=== PATIENT | female | born 1935 | race Asian ===

== ENCOUNTER → 2018-01-06 16:50 | Outpatient (CLI) | payer MEDICARE, MEDICAID, SELFPAY ==
--- NOTE | 2018-01-06 16:54 | DI.RAD.S_ITS ---
PROCEDURE: XR CHEST 2V INDICATIONS: dyspnea TECHNIQUE: 2 views of the chest were acquired. COMPARISON: [facility], CHEST 2 VIEW, 11/05/2017, 11:58. [facility], CHEST 2 VIEW, 12/12/2014, 14:06. FINDINGS: Surgical changes and devices: None. Lungs and pleura: No pleural effusions or pneumothorax. Lungs are clear. Hyperinflation. Mediastinum: Stable prominence of the cardiomediastinal contours. Bones and chest wall: No suspicious bony abnormalities. Soft tissues appear unremarkable. Old right clavicle fracture. Old rib fractures. Stable vertebral body compression fracture. IMPRESSION: Normal chest. Chronic findings as described above. Dictated by: Maximiliano Haley M.D. on 01/06/2018 at 19:05 Approved by: Maximiliano Haley M.D. on 01/06/2018 at 19:07
[2018-01-06 17:33] LABS: Hematocrit 38.4 % (36-46); Hemoglobin 12.4 g/dL (12.0-16.0); Mean Corpuscular HGB Conc 32.2 % (30-36); Mean Corpuscular Hemoglobin 22.4 PG (26-34); Mean Corpuscular Volume 69.7 fL (80-100); Platelet Count 351 X10^3/uL (150-400); Red Blood Cell Count 5.52 X10^6/uL (4.0-5.2); Red Cell Distribution Width 15.3 % (11.6-14.8); White Blood Cell Count 8.5 X10^3/uL (4.5-11.0)
[2018-01-06 17:48] LABS: B Type Natriuretic Peptide 53.9 (<100)
[2018-01-06 17:57] LABS: Neutrophils Absolute Manual 5100 /uL (3000-5900); Total Cells Counted 100
[2018-01-06 17:58] LABS: Hypochromasia 1+; Microcytosis 1+; Ovalocytes 1+; Poikilocytosis 1+
[2018-01-06 19:07] LABS: Alanine Aminotransferase 30 IU/L (9-52); Albumin 4.6 g/dL (3.5-5.0); Albumin Globulin Ratio 1.2 (1.0-2.8); Alkaline Phosphatase 83 U/L (38-126); Aspartate Aminotransferase 27 IU/L (14-36); BUN Creatinine Ratio 26.7 (6-22); Bilirubin Total 0.4 mg/dL (0.2-1.3); Calcium 9.7 mg/dL (8.4-10.2); Estimated Glomerular Filt Rate > 60.0 mL/min (>60); Globulin 3.7 g/dL (1.7-4.1); Glucose 104 mg/dL (80-110); HEMOLYSIS 18 (0-50); Potassium 4.1 mmol/L (3.4-5.1); Sodium 145 mmol/L (137-145); Total Protein 8.3 g/dL (6.3-8.2)
[2018-01-06 19:24] LABS: Free T4, Direct Thyroxine 1.15 ng/dL (0.78-2.19)
[2018-01-06 19:38] LABS: Thyroid Stimulating Hormone 0.55 uIU/mL (0.47-4.68)
== END ==
PROVIDERS: Family Provider Internal Medicine; PCP Internal Medicine; Visit Provider Internal Medicine
DX: R06.00 Dyspnea, unspecified (principal); D56.9 Thalassemia, unspecified; I10 Essential (primary) hypertension; R60.9 Edema, unspecified
CPT/HCPCS: 71046; 80053; 83880; 84439; 84443; 85025

== ENCOUNTER 2018-01-15 08:55 | Emergency (ER) | payer MEDICARE, MEDICAID, SELFPAY ==
[2018-01-15] VITALS (8 sets, daily range): BP systolic 178–186; BP diastolic 74–86; PULSE 75–103; RESP 14–30; TEMP 36.7; O2SAT 96–97; BMI 23.0
[2018-01-15] MEDS: ALBUTEROL/IPRATROPIUM 3 ML AMPUL INH (10:38)
--- NOTE | 2018-01-15 10:47 | ED_ITS ---
HPI - Dizziness General Chief Complaint: Dizziness Stated Complaint: high BP Time Seen by Provider: 01/15/18 09:03 Source: patient Mode of arrival: ambulatory Limitations: no limitations History of Present Illness HPI Narrative: 82F hx asthma and vertigo has 3 days vertiginous symptoms typical of her vertigo worsened with head movement. Patient also here for complaints of incraesed blood prssure as measured at home. Stated 3 days prior patient was taken off her nifedipine due to side effects of pedal edema. Since then she has noticed and increase of BP. No other symptoms - no chset pain, fever, chills, SOB. Has an outpatient diagnostic imaging appointment in 4 days for cardiac echo. PCP Dr. Pino Related Data Home Medications Medication Instructions Recorded Confirmed omeprazole magnesium [Prilosec OTC] 20 mg PO QAM PRN #0 07/28/11 01/15/18 hydrochlorothiazide 12.5 mg PO QDAY 01/15/18 01/15/18 Previous Rx's Medication Instructions Recorded albuterol sulfate [Ventolin HFA] 0 puff INH SEE INSTRUCTIONS #1 inh 07/26/17 fluticasone-salmeterol [Advair 1 puff INH BID #180 inh 07/26/17 Diskus] lisinopril 40 mg PO QDAY #90 tab 07/26/17 nifedipine [Adalat CC] 90 mg PO QDAY #90 tab 07/26/17 clopidogrel 75 mg PO QDAY #90 tab 08/12/17 meclizine 25 mg PO TIDP PRN #90 tab 08/12/17 Home Nebulizer #1 ea 01/06/18 albuterol sulfate 2.5 mg/3 mL 2.5 mg CONTINUOUS NEBULIZATION 01/06/18 (0.083 %) solution for nebulization Q4HP PRN #120 each Allergies Allergy/AdvReac Type Severity Reaction Status Date / Time hydrocodone [HYDROCODONE] Allergy Unknown GI UPSET Verified 01/06/18 16:25 BUT IT WAS GIVEN ON EMPTY STOMACH doxycycline [DOXYCYCLINE] AdvReac Mild MILD GI Verified 01/06/18 16:25 DISTRESS, NOT SURE Review of Systems Review of Systems ROS: Constitutional - No fever, chills Eyes - No visual changes ENT - No hearing loss Cardiovascular - No chest pain, No edema, no palpitations Respiratory - No cough, mild shortness of breath, wheeze GI - No abdominal pain, No nausea, No vomiting - No dysuria, no hematuria MSK- No back pain Skin - No rash Neuro - No weakness, no change in level of consciousness, has vertigo Endocrine - No polyuria Hematologic/lymphatic - No easy bruising, no petechiae PFSH Medical History Asthma (Chronic) Hyperlipidemia (Chronic) Essential hypertension (Chronic) Thalassemia (Chronic) Dizziness (Chronic) Heart murmur (Chronic 01/02/16) Social History Smoking Status: Never smoker Exam Narrative Exam Narrative: Exam: Constitutional - Well appearing, well nourished, NAD EYES - PERRL, EOMI ENT - Moist oral mucosa Cardiovasuclar - Normal rate, slightly irregular rhythm, no murmurs, gallops, rubs Respiratory - Lungs moderate wheeze bilaterally, no increased respiratory effort , no accessory muscle use GI - Soft, non tender, non distended, no rebound MSK - No deformity, No CVA tenderness, No peripheral edema Skin - No rash, no petechiae Neuro - A&Ox3, moves all extremities. No focal deficits; extinguishing nystagmus on Left gaze Initial Vital Signs Initial Vital Signs: Vital Signs Temperature 98.1 F 01/15/18 09:13 Pulse Rate 75 01/15/18 09:13 Respiratory Rate 14 01/15/18 09:13 Blood Pressure 178/80 H 01/15/18 09:13 Pulse Oximetry 97 01/15/18 09:13 Course Orders Ordered: ED Orders 01/15/18 10:25 Complete Blood Count AUTO DIFF Stat Comprehensive Metabolic Panel Stat Magnesium Stat Troponin with CK Cardiac Panel Stat 01/15/18 10:26 EKG-12 Lead Stat 01/15/18 10:50 XR chest 2V Stat 01/15/18 11:15 Urinalysis and Microscopic Stat Urine Culture Stat Discontinued Medications Albuterol/Ipratropium (Duoneb) 3 ml INH NOW ONE Stop: 01/15/18 10:36 Last Admin: 01/15/18 10:38 Dose: 3 ml Vital Signs - 8 hr 01/15/18 09:13 01/15/18 09:20 01/15/18 09:23 Temperature 98.1 F 98.1 F 98.1 F Pulse Rate 75 75 75 Respiratory Rate 14 14 14 Blood Pressure 178/80 H 178/80 H 178/80 H Blood Pressure [Right Arm] Pulse Oximetry 97 97 97 01/15/18 10:38 01/15/18 11:46 01/15/18 12:30 Temperature Pulse Rate 103 H 85 79 Respiratory Rate 30 H 30 H 16 Blood Pressure Blood Pressure [Right Arm] 186/86 H 178/77 H Pulse Oximetry 96 97 96 01/15/18 13:33 Temperature Pulse Rate 77 Respiratory Rate 18 Blood Pressure Blood Pressure [Right Arm] 181/74 H Pulse Oximetry 96 MDM - Dizziness Lab Data Result diagrams: 01/15/18 10:25 01/15/18 10:25 Lab Results 01/15/18 01/15/18 01/15/18 Range/Units 10:25 10:25 11:15 WBC 7.8 (4.5-11.0) X10^3/uL RBC 5.84 H (4.0-5.2) X10^6/uL Hgb 13.1 (12.0-16.0) g/dL Hct 40.2 (36-46) % MCV 68.9 L (80-100) fL MCH 22.4 L (26-34) PG MCHC 32.5 (30-36) % RDW 15.1 H (11.6-14.8) % Plt Count 334 (150-400) X10^3/uL Neut % (Auto) Not Reportable Lymph % (Auto) Not Reportable [place] % (Auto) Not Reportable Eos % (Auto) Not Reportable Baso % (Auto) Not Reportable Total Counted Cancelled Seg Neutrophils % Cancelled Band Neutrophils % Cancelled Lymphocytes % (Manual) Cancelled Atypical Lymphs % Cancelled Monocytes % (Manual) Cancelled Eosinophils % (Manual) Cancelled Basophils % (Manual) Cancelled Metamyelocytes % Cancelled Myelocytes % Cancelled Promyelocytes % Cancelled Blast Cells % Cancelled Neutrophils # (Manual) Cancelled Differential Comment Cancelled Plasma Cells Cancelled RBC Morphology Not Reportable Hypochromasia 2+ H Poikilocytosis 2+ H Anisocytosis 2+ H Target Cells 2+ H Sodium 141 (137-145) mmol/L Potassium 4.0 (3.4-5.1) mmol/L Chloride 100.0 (98-107) mmol/L Carbon Dioxide 28.0 (22-32) mmol/L BUN 15.0 (7-17) mg/dL Creatinine 0.60 (0.52-1.04) mg/dL Estimated GFR > 60.0 (>60) mL/min BUN/Creatinine Ratio 25.0 H (6-22) Glucose 106 (80-110) mg/dL Calcium 9.4 (8.4-10.2) mg/dL Magnesium 2.3 (1.6-2.3) mg/dL Total Bilirubin 0.6 (0.2-1.3) mg/dL AST 60 H (14-36) IU/L ALT 27 (9-52) IU/L Alkaline Phosphatase 88 (38-126) U/L Total Creatine Kinase 92 (30-135) U/L Troponin I < 0.012 (0.01-0.034) ng/mL Total Protein 8.6 H (6.3-8.2) g/dL Albumin 4.5 (3.5-5.0) g/dL Globulin 4.1 (1.7-4.1) g/dL Albumin/Globulin Ratio 1.1 (1.0-2.8) Urine Color Yellow Urine Appearance Clear Urine pH 7.0 (4.5-8.0) Ur Specific [place] 1.010 (1.000-1.035) Urine Protein 1+ H (Negative) Urine Glucose (UA) Negative (Negative) g/dL Urine Ketones Negative (NEGATIVE) Urine Occult Blood Trace-lysed (Negative) Urine Nitrate Negative (Negative) Urine Bilirubin Negative (NEGATIVE) Urine Urobilinogen 0.2 (0.2) E.U./dL Ur Leukocyte Esterase Trace H (NEGATIVE) Urine RBC None seen (0-5/HPF) Urine WBC 5-10/hpf H (0-5/HPF) Urine Bacteria None seen (None) Ur Culture Indicated? Specimen cultured Micro UA Comment Not Reportable ECG Data Interpretation: Sinus Rhthym; HR [address]/Tw changes Normal DC interval; RBBB Frequent PACs MDM Narrative Medical decision making narrative: Patient with hypertension secondary to cessation of her BP medications. No end organ damage. Benign vertigo consistent with patient's prior symptoms. Meclizine ordered. Patient did not take her morning albuterol - duoneb given in ED. Patient remained in stable condition while in ED. As today was wednesday, the office of Dr. Pino telecommunications equipment installer service stated patient must make follow up appointment themselves. Strict instructions to follow up with Dr. Pino Discharge Plan Departure Patient Disposition: Home, Self-Care Clinical Impression: Vertigo Instructions: DI for Vertigo Activity Restrictions/Additional Instructions: You must follow up within [address] Pino. You will need additional blood pressure medication. Prescriptions: No Action omeprazole magnesium [Prilosec OTC] 20 MG tablet,delayed release (DR/EC) 20 mg PO QAM PRN (Reason: Abdominal Discomfort) Qty: 0 RF: 0 nifedipine [Adalat CC] 90 MG tablet extended release 90 mg PO QDAY Qty: 90 RF: 11 fluticasone-salmeterol [Advair Diskus] 500 MCG/50 MCG blister with device 1 puff INH BID Qty: 180 RF: 3 albuterol sulfate [Ventolin HFA] 90 MCG/PUFF HFA aerosol inhaler INH SEE INSTRUCTIONS Qty: 1 RF: 11 lisinopril 40 MG tablet 40 mg PO QDAY Qty: 90 RF: 3 clopidogrel 75 MG tablet 75 mg PO QDAY Qty: 90 RF: 3 meclizine 25 MG tablet 25 mg PO TIDP PRNQty: 90 RF: 6 Home Nebulizer Qty: 1 RF: 0 albuterol sulfate 2.5 mg /3 mL (0.083 %) solution for nebulization 2.5 mg Continuous Nebulization Q4HP PRN (Reason: wheezing) Qty: 120 RF: 11 hydrochlorothiazide 25 MG tablet 12.5 mg PO QDAY RF: 0 Referrals: Phil Pino MD [Primary Care Provider] -
--- NOTE | 2018-01-15 10:50 | DI.RAD.S_ITS ---
PROCEDURE: XR CHEST 2V INDICATIONS: Dizziness TECHNIQUE: 2 views of the chest were acquired. COMPARISON: [facility], CR, XR CHEST 2V, 01/06/2018, 16:53. FINDINGS: Surgical changes and devices: None. Lungs and pleura: No pleural effusions or pneumothorax. There is hyperinflation of the lungs with flattening of the hemidiaphragms compatible with COPD. no acute consolidation. Mediastinum: Mediastinal contours are unchanged. Heart size is normal. Bones and chest wall: No suspicious bony abnormalities. Soft tissues appear unremarkable. IMPRESSION: 1. Findings compatible with COPD redemonstrated. 2. No definite acute cardiopulmonary disease. Dictated by: Javad Bell M.D. on 01/15/2018 at 11:33 Approved by: Javad Bell M.D. on 01/15/2018 at 11:34
[2018-01-15 11:14] LABS: Hematocrit 40.2 % (36-46); Hemoglobin 13.1 g/dL (12.0-16.0); Mean Corpuscular HGB Conc 32.5 % (30-36); Mean Corpuscular Hemoglobin 22.4 PG (26-34); Mean Corpuscular Volume 68.9 fL (80-100); Platelet Count 334 X10^3/uL (150-400); Red Blood Cell Count 5.84 X10^6/uL (4.0-5.2); Red Cell Distribution Width 15.1 % (11.6-14.8); White Blood Cell Count 7.8 X10^3/uL (4.5-11.0)
[2018-01-15 11:21] LABS: Add Manual Diff / Slide Review NO; Alanine Aminotransferase 27 IU/L (9-52); Albumin 4.5 g/dL (3.5-5.0); Albumin Globulin Ratio 1.1 (1.0-2.8); Alkaline Phosphatase 88 U/L (38-126); Aspartate Aminotransferase 60 IU/L (14-36); Bilirubin Total 0.6 mg/dL (0.2-1.3); Calcium 9.4 mg/dL (8.4-10.2); Creatine Kinase 92 U/L (30-135); Estimated Glomerular Filt Rate > 60.0 mL/min (>60); Globulin 4.1 g/dL (1.7-4.1); Glucose 106 mg/dL (80-110); Magnesium 2.3 mg/dL (1.6-2.3); Sodium 141 mmol/L (137-145); Total Protein 8.6 g/dL (6.3-8.2)
[2018-01-15 11:27] LABS: HEMOLYSIS 56 (0-50)
[2018-01-15 11:31] LABS: Bacteria Urine None Seen; RBC Urine None Seen (0-5/HPF)
[2018-01-15 11:32] LABS: Appearance Urine UA CLEAR; Bilirubin Urine UA NEGATIVE (NEGATIVE); Color Urine UA YELLOW; Glucose Urine UA NEGATIVE (Negative); Ketones Urine UA NEGATIVE (NEGATIVE); Leukocyte Esterase Urine UA TRACE (NEGATIVE); Nitrite Urine UA Negative (Negative); Occult Blood Urine UA TRACE-LYSED (Negative); Protein Urine UA 1+ (Negative); Urobilinogen Urine UA 0.2 E.U./dL (0.2)
[2018-01-15 11:32] LABS: Troponin I < 0.012 ng/mL (0.01-0.034)
[2018-01-15 11:40] LABS: Culture Indicated Urine Specimen Cultured; WBC Urine 5-10/HPF (0-5/HPF)
[2018-01-15 12:52] LABS: Anisocytosis 2+; Hypochromasia 2+; Poikilocytosis 2+; Target Cells 2+
[2018-01-15 12:53] LABS: Smudge Cells 1+
== END 2018-01-15 13:51 | disposition home or self-care (01) ==
PROVIDERS: Emergency Provider Student in an Organized Health Care Education/Training Program; Family Provider Internal Medicine; PCP Internal Medicine
DX: R42 Dizziness and giddiness (principal)
CPT/HCPCS: 36591; 71046; 80053; 81001; 82550; 82553; 83735; 84484; 85025; 87086; 93005; 93010; 93041; 94640; 99283; 99285

== ENCOUNTER → 2018-02-04 11:07 | Outpatient (CLI) | payer MEDICARE, MEDICAID, SELFPAY ==
[2018-02-04 12:09] LABS: Blood Urea Nitrogen 18 mg/dL (7-17); Calcium 9.7 mg/dL (8.4-10.2); Carbon Dioxide 30 mmol/L (22-32); Chloride 96 mmol/L (98-107); Estimated Glomerular Filt Rate > 60.0 mL/min (>60); Glucose 107 mg/dL (80-110); HEMOLYSIS < 15 (0-50); Potassium 3.2 mmol/L (3.4-5.1); Sodium 140 mmol/L (137-145)
== END ==
PROVIDERS: PCP Internal Medicine; Visit Provider Internal Medicine
DX: I10 Essential (primary) hypertension (principal)
CPT/HCPCS: 36415; 80048

== ENCOUNTER → 2018-09-01 12:51 | Outpatient (CLI) | payer MEDICARE, MEDICAID, SELFPAY ==
--- NOTE | 2018-09-02 16:08 | PM.PFT.1 ---
Pulmonary Function Test Referral & Results Date Patient Seen: 09/01/18 Requesting provider: Phil Pino Indication: Asthma Results: The spirometry demonstrates an FVC of 1.01 L which is 52% of predicted. The FEV1 was measured at 0.58 L which is 40% of predicted. The FEV1/FVC ratio was 57 which is 70% of predicted. Following the administration of bronchodilator there was a 50% improvement in FEV1 and a 40% improvement in FEF 25-75%. Lung volumes show an SVC of 0.99 L which is 46% of predicted. No diffusing capacity was performed. The maximum voluntary ventilation was reduced Interpretation: Per the certified master safe technician a significant language barrier interfered with patient's ability to follow instructions so the results may be affected by that This spirometry does indeed demonstrates severe obstructive lung disease with evidence of benefit following bronchodilator administration. There is also moderately severe restrictive lung disease present
== END ==
PROVIDERS: PCP Internal Medicine; Visit Provider Internal Medicine
DX: J45.31 Mild persistent asthma with (acute) exacerbation (principal)
CPT/HCPCS: 94060